=== PATIENT | male | born 1935 | race Hispanic/Latino ===

== ENCOUNTER 2020-12-07 07:56 | Day surgery (SDC) | payer MEDICARE ==
[2020-12-03 13:06] LABS: APPEARANCE,URINE Clear (CLEAR); BILIRUBIN,URINE Negative (NEGATIVE); COLOR,URINE Yellow (YELLOW); GLUCOSE, URINE (UA) Negative (NEGATIVE); KETONES,URINE Negative (NEGATIVE); LEUKOCYTE ESTERASE ,URINE Negative (NEGATIVE); NITRATE,URINE Negative (NEGATIVE); OCCULT BLOOD,URINE Negative (NEGATIVE); PROTEIN,URINE Negative (NEGATIVE); UROBILINOGEN,URINE 0.2 mg/dL (0.2-1.0)
[2020-12-03 13:11] LABS: BASOPHILS % (AUTO) 0.4 % (0.0-5.0); HEMATOCRIT 27.7 % (42-54); LYMPHOCYTES % (AUTO) 16.7 % (21.0-51.0); MEAN CORPUSCULAR HEMOGLOBIN 32.7 pg (27.0-33.0); MEAN CORPUSCULAR HGB CONC 33.2 g/dL (32.0-36.0); MEAN CORPUSCULAR VOLUME 98.6 fL (79-99); MONOCYTES % (AUTO) 9.9 % (3.0-13.0); NEUTROPHILS % (AUTO) 71.4 % (40.0-77.0); PLATELET COUNT (AUTO) 228 K/uL (130-400); RED BLOOD CELL COUNT(AUTO) 2.81 MIL/uL (4.50-6.20); RED CELL DISTRIBUTION WIDTH 13.3 % (11.0-15.5); WHITE BLOOD COUNT (AUTO) 14.6 K/uL (4.8-10.8)
[2020-12-03 13:28] LABS: CREATININE 1.5 mg/dL (0.5-1.5); POTASSIUM 5.4 mmol/L (3.5-5.1)
[2020-12-06 12:22] VITALS: BP 150/55
[~2020-12-07] VITALS: Ht 162.6 cm; Wt 69.7 kg
[2020-12-07] VITALS (23 sets, daily range): BP systolic 108–194; BP diastolic 42–108
[2020-12-07] MEDS: CEFTRIAXONE 1G VIAL IVP SCH ×2 (06:00→10:50)
[~2020-12-07 07:56] MED LIST: AMLO-257 PO; ASPI-1197 PO; ATOR40TA71 PO; GENTAMICIN 80 MG/NS 100 ML PB 100 ML IV SCH; HYDR12.54 PO; LEVAQUIN PO; MVIT PO; VALS160T29 PO
[2020-12-07] MEDS ORDERED: LACTATED RINGERS 1000ML 1,000 ML IV ONE (08:58)
[2020-12-07] MEDS ORDERED: DEXAMETHASONE SOD PHOSPHATE 10MG/ML 1ML VIAL ONE (10:31)
[2020-12-07] MEDS ORDERED: SUCCINYLCHOLINE 200MG/10ML SYR ONE (10:31)
[2020-12-07] MEDS ORDERED: LIDOCAINE PF 100MG/5ML (2%) SYRINGE 5ML ONE (10:31)
[2020-12-07] MEDS ORDERED: NEOSTIGMINE 5MG/5ML SYR IV ONE (10:32)
[2020-12-07] MEDS ORDERED: FENTANYL CITRATE PF 50 MCG/1 ML 2ML VIAL ONE (10:32)
[2020-12-07] MEDS ORDERED: MIDAZOLAM HCL 1 MG/ML 2ML VIAL ONE ×2 (10:32→11:36)
[2020-12-07] MEDS ORDERED: PROPOFOL 10 MG/ML 20ML VIAL IV ONE (10:32)
[2020-12-07] MEDS ORDERED: ROCURONIUM 10MG/1ML SYR 10 MG/ML ML ONE (10:32)
[2020-12-07] MEDS ORDERED: GLYCOPYRROLATE 1 MG/5 ML SYRINGE ONE (10:32)
[2020-12-07] MEDS ORDERED: PHENYLEPHRINE HCL 10 MG/ML 1ML VIAL IV ONE (11:07)
[2020-12-07] MEDS ORDERED: SUGAMMADEX SODIUM 200 MG/2 ML VIAL IV ONE (11:45)
[2020-12-07] MEDS ORDERED: FLUMAZENIL 0.1MG/1ML 5ML VIAL IV ONE (11:51)
[2020-12-07] MEDS ORDERED: FUROSEMIDE 40MG VIAL ONE (12:02)
== END 2020-12-07 15:20 | disposition home or self-care (01) ==
LOC: DAH 07:56
PROVIDERS: ATTEND Urology
DX: R97.20 Elevated prostate specific antigen [PSA] (principal); Z20.822 Contact with and (suspected) exposure to COVID-19; N40.1 Benign prostatic hyperplasia with lower urinary tract symptoms; R35.1 Nocturia; N32.89 Other specified disorders of bladder; I25.10 Atherosclerotic heart disease of native coronary artery without angina pectoris; I10 Essential (primary) hypertension; K21.9 Gastro-esophageal reflux disease without esophagitis; E78.5 Hyperlipidemia, unspecified; Z90.49 Acquired absence of other specified parts of digestive tract; Z95.1 Presence of aortocoronary bypass graft; Z79.82 Long term (current) use of aspirin; Z79.899 Other long term (current) drug therapy
CPT/HCPCS: 36415; 55700; 71045; 76872; 80048; 81003; 85025; 87088; 87635; 93005; 94660; A4215 ×2; A4221; A4222; A4223; A4358; A4600; A4649; A4663; A6260; C9803; J0330; J0696; J1100; J1580; J1940; J2001; J2250; J2370; J2704; J2710; J3010; J3490 ×2; J7120

== ENCOUNTER 2021-09-09 17:10 | Emergency (ER) | payer MEDICARE ==
[~2021-09-09] VITALS: Ht 162.6 cm; Wt 68.0 kg
[~2021-09-09 17:10] MED LIST changes: +ENZA40TA PO; -GENTAMICIN 80 MG/NS 100 ML PB 100 ML IV SCH; -HYDR12.54 PO; -LEVAQUIN PO; +LEVO25CA4 PO; +MEGE40L PO; +OXYB10TA30 PO; +TAMS-1 PO; -VALS160T29 PO
[2021-09-09 17:51] LABS: BASOPHILS % (AUTO) 0.7 % (0.0-5.0); EOSINOPHILS % (AUTO) 1.9 % (0.0-8.0); HEMATOCRIT 29.6 % (42-54); LYMPHOCYTES % (AUTO) 26.6 % (21.0-51.0); MEAN CORPUSCULAR HEMOGLOBIN 33.3 pg (27.0-33.0); MEAN CORPUSCULAR HGB CONC 33.1 g/dL (32.0-36.0); MEAN CORPUSCULAR VOLUME 100.7 fL (79-99); MONOCYTES % (AUTO) 11.4 % (3.0-13.0); PLATELET COUNT (AUTO) 306 K/uL (130-400); RED BLOOD CELL COUNT(AUTO) 2.94 MIL/uL (4.50-6.20); RED CELL DISTRIBUTION WIDTH 13.2 % (11.0-15.5); WHITE BLOOD COUNT (AUTO) 6.7 K/uL (4.8-10.8)
[2021-09-09 18:05] LABS: CREATININE 1.2 mg/dL (0.5-1.5); POTASSIUM 4.2 mmol/L (3.5-5.1)
[2021-09-09 18:10] LABS: ALBUMIN 3.4 g/dL (3.5-5.0); TOTAL PROTEIN, SERUM 7.3 g/dL (6.0-8.3)
[2021-09-09 20:22] LABS: APPEARANCE,URINE Cloudy (CLEAR); BILIRUBIN,URINE Small (NEGATIVE); COLOR,URINE Dark Yellow (YELLOW); GLUCOSE, URINE (UA) Negative (NEGATIVE); KETONES,URINE 15 mg/dL (NEGATIVE); LEUKOCYTE ESTERASE ,URINE Trace (NEGATIVE); NITRATE,URINE Positive (NEGATIVE); OCCULT BLOOD,URINE Negative (NEGATIVE); PROTEIN,URINE 300 mg/dL (NEGATIVE)
[2021-09-09 20:30] LABS: BACTERIA,URINE Moderate /HPF (None Seen); MUCUS,URINE Few LPF (None Seen); SQUAMOUS EPITHELIAL CELL,UR Few /HPF (0-2)
[2021-09-09 20:41] LABS: MAGNESIUM 1.8 mg/dL (1.80-2.40)
[2021-09-09] MEDS ORDERED: 0.9%NACL 1000ML 1,000 ML IV ONE (21:30)
[2021-09-09] MEDS ORDERED: ATOR40TA69 PO (21:41)
[2021-09-09] MEDS ORDERED: HYDR12.54 PO (21:41)
[2021-09-09] MEDS ORDERED: AMLO-257 PO (21:41)
[2021-09-09] MEDS ORDERED: BICA50TA7 PO (21:41)
[2021-09-09] MEDS ORDERED: CARV6.25 PO (21:41)
[2021-09-09] MEDS ORDERED: TAMS-1 PO (21:41)
[2021-09-09] MEDS ORDERED: OMEP20TA20 PO (21:41)
[2021-09-09] MEDS ORDERED: OXYB10TA30 PO (21:41)
[2021-09-09] MEDS ORDERED: MEGE40L PO (21:41)
[2021-09-09] MEDS ORDERED: VALS160T29 PO (21:41)
[2021-09-09] MEDS ORDERED: LEVO25CA4 PO (21:41)
[2021-09-09 22:50] VITALS: BP 127/56
== END 2021-09-09 23:58 | disposition home or self-care (01) ==
LOC: EDH 17:10
DX: E86.0 Dehydration (principal); R53.1 Weakness; C61 Malignant neoplasm of prostate; R63.0 Anorexia; Z20.822 Contact with and (suspected) exposure to COVID-19; I10 Essential (primary) hypertension; K21.9 Gastro-esophageal reflux disease without esophagitis; Z68.25 Body mass index [BMI] 25.0-25.9, adult; Z88.1 Allergy status to other antibiotic agents; Z90.49 Acquired absence of other specified parts of digestive tract; Z79.899 Other long term (current) drug therapy
CPT/HCPCS: 36415; 71045; 80053; 81001; 82550; 83735; 84484; 85025; 87077; 87088; 87186; 87635; 87804 ×2; 87880; 93005; 96360; 96361; 99285; C9803; J7030; U0003

== ENCOUNTER 2021-12-11 23:28 | Emergency (ER) | payer MEDICARE ==
[~2021-12-11] VITALS: Ht 167.6 cm; Wt 61.2 kg
[~2021-12-11 23:28] MED LIST changes: +ATOR40TA69 PO; -ATOR40TA71 PO; +BICA50TA7 PO; +CARV6.25 PO; +HYDR12.54 PO; -MVIT PO; +OMEP20TA20 PO; +VALS160T29 PO
[2021-12-12 00:12] LABS: APPEARANCE,URINE SL CLOUDY (CLEAR); BILIRUBIN,URINE MODERATE (NEGATIVE); COLOR,URINE YELLOW (YELLOW); GLUCOSE, URINE (UA) NEGATIVE (NEGATIVE); KETONES,URINE 15 mg/dL (NEGATIVE); LEUKOCYTE ESTERASE ,URINE MODERATE (NEGATIVE); NITRATE,URINE NEGATIVE (NEGATIVE); OCCULT BLOOD,URINE MODERATE (NEGATIVE); PROTEIN,URINE 30 mg/dL (NEGATIVE); UROBILINOGEN,URINE 0.2 mg/dL (0.2-1.0)
[2021-12-12 00:17] LABS: CREATININE 1.2 mg/dL (0.5-1.5)
[2021-12-12 00:19] LABS: BASOPHILS % (AUTO) 0.1 % (0.0-5.0); EOSINOPHILS % (AUTO) 0.3 % (0.0-8.0); HEMATOCRIT 33.7 % (42-54); LYMPHOCYTES % (AUTO) 9.1 % (21.0-51.0); MEAN CORPUSCULAR HEMOGLOBIN 34.6 pg (27.0-33.0); MEAN CORPUSCULAR HGB CONC 33.5 g/dL (32.0-36.0); MEAN CORPUSCULAR VOLUME 103.1 fL (79-99); MONOCYTES % (AUTO) 5.7 % (3.0-13.0); NEUTROPHILS % (AUTO) 83.5 % (40.0-77.0); NUCLEATED RED BLOOD CELLS 0.2 % (0.0-0.19); PLATELET COUNT (AUTO) 403 K/uL (130-400); RED BLOOD CELL COUNT(AUTO) 3.27 MIL/uL (4.50-6.20); RED CELL DISTRIBUTION WIDTH 17.6 % (11.0-15.5); WHITE BLOOD COUNT (AUTO) 14.3 K/uL (4.8-10.8)
[2021-12-12 00:22] LABS: ALBUMIN 1.8 g/dL (3.5-5.0); TOTAL PROTEIN, SERUM 6.7 g/dL (6.0-8.3)
[2021-12-12 00:31] LABS: BACTERIA,URINE Many /HPF (None Seen); MUCUS,URINE Rare LPF (None Seen); SQUAMOUS EPITHELIAL CELL,UR None Seen /HPF (0-2); TRIPLE PHOSPHATE CRYSTAL,UR Few /LPF (None Seen); WBC,URINE 26-50 /HPF (0-1)
[2021-12-12] MEDS ORDERED: LACTATED RINGERS 1000ML 1,000 ML IV SCH ×2 (02:30→03:00)
[2021-12-12] MEDS ORDERED: CEFTRIAXONE 1G VIAL ONE (02:59)
[2021-12-12] MEDS ORDERED: CEFTRIAXONE 1G VIAL IVP ONE (03:00)
[2021-12-12] MEDS ORDERED: IPRATROPIUM/ALBUTEROL SULFATE 3 ML SOLUTION IH ONE (03:00)
[2021-12-12] MEDS ORDERED: CIPR-278 PO (04:28)
[2021-12-12 04:34] VITALS: BP 119/47
== END 2021-12-12 04:49 | disposition home or self-care (01) ==
LOC: EDH 23:28
DX: N39.0 Urinary tract infection, site not specified (principal); E86.0 Dehydration; D64.9 Anemia, unspecified; C61 Malignant neoplasm of prostate; I10 Essential (primary) hypertension; E78.00 Pure hypercholesterolemia, unspecified; K21.9 Gastro-esophageal reflux disease without esophagitis; Z79.899 Other long term (current) drug therapy; Z88.1 Allergy status to other antibiotic agents; Z90.49 Acquired absence of other specified parts of digestive tract
CPT/HCPCS: 99285; 71045; 83735; 84484; 80053; 83880; 85025; 87040 ×2; 87077; 87088; 87186; 83605; 81001; 36415; 93005; 96374; 96361; 94640; J7030; J0696